=== PATIENT | male | born 1960 | race African-American/Black ===

== ENCOUNTER 2017-03-03 01:36 | Emergency (ER) | payer MEDICAID ==
[~2017-03-03] VITALS: Ht 177.8 cm; Wt 122.5 kg
[2017-03-03 02:00] VITALS: BP 190/106
[2017-03-03] MEDS: cloNIDine HCL 0.1 MG TAB PO ONE (02:05)
[2017-03-03] MEDS: cloNIDine HCL 0.1 MG TAB ONE (02:25)
== END 2017-03-03 02:30 | disposition left against medical advice (07) ==
LOC: ER 01:40
DX: S01.91XA Laceration without foreign body of unspecified part of head, initial encounter (principal); V49.9XXA Car occupant (driver) (passenger) injured in unspecified traffic accident, initial encounter; Y93.89 Activity, other specified; Y92.488 Other paved roadways as the place of occurrence of the external cause; Y99.8 Other external cause status; Z53.21 Procedure and treatment not carried out due to patient leaving prior to being seen by health care provider

== ENCOUNTER 2017-03-03 22:21 | Emergency (ER) | payer MEDICAID ==
[~2017-03-03] VITALS: Ht 177.8 cm; Wt 112.9 kg
[2017-03-03 23:02] VITALS: BP 159/99
[2017-03-04] MEDS ORDERED: BACLOFEN 10 MG TAB PO ONE (03:15)
[2017-03-04] MEDS ORDERED: IBUPROFEN 600 MG TAB PO ONE (03:15)
== END 2017-03-04 03:54 | disposition home or self-care (01) ==
LOC: ER 22:35
DX: S16.1XXA Strain of muscle, fascia and tendon at neck level, initial encounter (principal); S05.11XA Contusion of eyeball and orbital tissues, right eye, initial encounter; S20.212A Contusion of left front wall of thorax, initial encounter; F17.210 Nicotine dependence, cigarettes, uncomplicated; V49.9XXA Car occupant (driver) (passenger) injured in unspecified traffic accident, initial encounter; Y93.89 Activity, other specified; Y92.488 Other paved roadways as the place of occurrence of the external cause; Y99.8 Other external cause status
CPT/HCPCS: 70450; 70486; 71250; 72125

== ENCOUNTER 2017-08-07 19:12 | Emergency (ER) | payer MEDICAID ==
[~2017-08-07] VITALS: Ht 177.8 cm; Wt 113.1 kg
[2017-08-07 19:21] VITALS: BP 139/74
[2017-08-07] MEDS ORDERED: ALBUTEROL SULF 2.5 MG/0.5ML(0.5%) NEB SOLN NEB ONE (22:30)
== END 2017-08-07 22:24 | disposition home or self-care (01) ==
LOC: ER 19:12
DX: F15.10 Other stimulant abuse, uncomplicated (principal); F17.210 Nicotine dependence, cigarettes, uncomplicated; M79.641 Pain in right hand
CPT/HCPCS: 73130

== ENCOUNTER 2017-12-24 20:02 | Emergency (ER) | payer MEDICAID ==
[~2017-12-24] VITALS: Ht 175.3 cm; Wt 117.9 kg
[2017-12-24] MEDS ORDERED: cloNIDine HCL 0.1 MG TAB PO ONE (20:30)
[2017-12-24] MEDS ORDERED: NIFEdipine 10 MG CAP PO ONE (21:45)
[2017-12-24 22:18] VITALS: BP 125/84
== END 2017-12-24 22:20 | disposition home or self-care (01) ==
LOC: EDBD 20:02 → ER 20:06
DX: I16.0 Hypertensive urgency (principal); F15.10 Other stimulant abuse, uncomplicated; I10 Essential (primary) hypertension; F17.210 Nicotine dependence, cigarettes, uncomplicated
CPT/HCPCS: 70450; 71045; 93005; 94761

== ENCOUNTER 2019-01-11 04:39 | Emergency (ER) | payer MEDICAID, OTHER ==
[~2019-01-11] VITALS: Ht 177.8 cm; Wt 117.9 kg
[2019-01-11] MEDS ORDERED: cloNIDine HCL 0.1 MG TAB PO ONE (05:45)
[2019-01-11 07:34] LABS: Basophils # (auto) 0 uL; Basophils % (auto) 0.2 % (0.0-2.0); Eosinophils # (auto) 0.4 uL; Eosinophils % (auto) 4.2 % (0.0-7.0); Hematocrit 39.2 % (41.0-53.0); Hemoglobin 12.9 g/dL (13.5-17.5); Lymphocytes # (auto) 1.2 uL; Mean Corpuscular Hemoglobin 30.3 pg (28.0-32.0); Mean Corpuscular Hgb Conc. 32.9 g/dL (32.0-36.0); Mean Corpuscular Volume 92.3 fL (80.0-100.0); Monocytes # (auto) 0.7 uL; Monocytes % (auto) 6.8 % (0.0-12.0); Neutrophils # (auto) 7.8 uL; Neutrophils % (auto) 76.8 % (37.0-80.0); Platelet Count (auto) 256 10^3/uL (140-450); Red Blood Cells 4.25 10^6/uL (4.5-5.90); White Blood Cell 10.1 10^3/uL (4.4-10.8)
[2019-01-11 07:38] LABS: Albumin 3.4 g/dL (3.4-5.0); Anion Gap 5 (5-15); Blood Urea Nitrogen 17 mg/dL (7-18); Calcium 8.6 mg/dL (8.5-10.1); Carbon Dioxide 30 mmol/L (21-32); Chloride 101 mmol/L (98-107); Glucose 137 mg/dL (74-106); Potassium 3.5 mmol/L (3.5-5.1); Sodium 136 mmol/L (136-145)
[2019-01-11 07:40] LABS: BUN/Creatinine Ratio 13.5; GFR African American 76 mL/min; GFR Non-African American 63 mL/min
[2019-01-11 08:00] LABS: Alanine Aminotransferase 46 U/L (16-61); Alkaline Phosphatase 106 U/L (45-117); Aspartate Aminotransferase 33 U/L (15-37); Bilirubin, Total 0.3 mg/dL (0.2-1.0); Total Protein 6.9 g/dL (6.4-8.2)
[2019-01-11 08:03] VITALS: BP 151/92
[2019-01-11] MEDS ORDERED: DexAMETHasone SOD PHOS 4 MG/1ML SDV INJ IM ONE (09:15)
== END 2019-01-11 10:14 | disposition home or self-care (01) ==
LOC: ER 04:41
DX: M19.032 Primary osteoarthritis, left wrist (principal); M71.561 Other bursitis, not elsewhere classified, right knee; F17.210 Nicotine dependence, cigarettes, uncomplicated; F12.10 Cannabis abuse, uncomplicated; I10 Essential (primary) hypertension
CPT/HCPCS: 36415; 73110; 73130; 73562; 80053; 84484; 85025; 96372; 99284; J1100

== ENCOUNTER 2019-04-07 13:32 | Emergency (ER) | payer MEDICAID, OTHER ==
[~2019-04-07] VITALS: Ht 175.3 cm; Wt 117.9 kg
[2019-04-07] MEDS ORDERED: hydrALAZINE HCL 20 MG/ML VL IV ONE (13:45)
[2019-04-07 14:20] LABS: Basophils # (auto) 0 uL; Basophils % (auto) 0.3 % (0.0-2.0); Eosinophils # (auto) 0 uL; Eosinophils % (auto) 0.3 % (0.0-7.0); Hematocrit 41.7 % (41.0-53.0); Hemoglobin 13.4 g/dL (13.5-17.5); Lymphocytes # (auto) 1.2 uL; Lymphocytes % (auto) 9.5 % (10.0-50.0); Mean Corpuscular Hemoglobin 29.8 pg (28.0-32.0); Mean Corpuscular Hgb Conc. 32.2 g/dL (32.0-36.0); Mean Corpuscular Volume 92.4 fL (80.0-100.0); Monocytes # (auto) 0.7 uL; Monocytes % (auto) 6.1 % (0.0-12.0); Neutrophils # (auto) 10.1 uL; Neutrophils % (auto) 83.8 % (37.0-80.0); Nucleated Red Blood Cells % 0.1 %; Platelet Count (auto) 285 10^3/uL (140-450); Red Blood Cells 4.51 10^6/uL (4.5-5.90); Red Cell Distribution Width 14.3 % (11.8-14.3); White Blood Cell 12.1 10^3/uL (4.4-10.8)
[2019-04-07 14:30] VITALS: BP 198/99
[2019-04-07 14:42] LABS: Albumin 3.8 g/dL (3.4-5.0); Calcium 8.9 mg/dL (8.5-10.1); Potassium 3.6 mmol/L (3.5-5.1)
[2019-04-07 14:49] LABS: BUN/Creatinine Ratio 10.7; Bilirubin, Total 0.5 mg/dL (0.2-1.0)
[2019-04-07] MEDS ORDERED: cloNIDine HCL 0.1 MG TAB PO ONE (15:15)
== END 2019-04-07 15:39 | disposition home or self-care (01) ==
LOC: EDBD 13:32 → ER 13:33
DX: I16.0 Hypertensive urgency (principal); F17.210 Nicotine dependence, cigarettes, uncomplicated; F12.10 Cannabis abuse, uncomplicated; F15.10 Other stimulant abuse, uncomplicated; M10.9 Gout, unspecified; I10 Essential (primary) hypertension
CPT/HCPCS: 36415; 80053; 84484; 85025; 96374; 99284; J0360

== ENCOUNTER 2019-04-07 23:58 | Emergency (ER) | payer SELFPAY ==
[~2019-04-07] VITALS: Ht 177.8 cm; Wt 117.1 kg
[2019-04-08] MEDS ORDERED: cloNIDine HCL 0.1 MG TAB PO ONE (00:45)
[2019-04-08 02:00] VITALS: BP 180/92
[2019-04-08 02:26] LABS: Albumin 3.3 g/dL (3.4-5.0); Basophils # (auto) 0 uL; Basophils % (auto) 0.4 % (0.0-2.0); Calcium 8.8 mg/dL (8.5-10.1); Eosinophils # (auto) 0.1 uL; Eosinophils % (auto) 0.8 % (0.0-7.0); Hematocrit 40.1 % (41.0-53.0); Hemoglobin 13.2 g/dL (13.5-17.5); Lymphocytes # (auto) 1.1 uL; Lymphocytes % (auto) 11.7 % (10.0-50.0); Mean Corpuscular Hgb Conc. 32.9 g/dL (32.0-36.0); Mean Corpuscular Volume 91.2 fL (80.0-100.0); Monocytes # (auto) 0.6 uL; Monocytes % (auto) 6.4 % (0.0-12.0); Neutrophils # (auto) 7.4 uL; Neutrophils % (auto) 80.7 % (37.0-80.0); Nucleated Red Blood Cells % 0.2 %; Platelet Count (auto) 277 10^3/uL (140-450); Potassium 3.4 mmol/L (3.5-5.1); Red Cell Distribution Width 14.1 % (11.8-14.3); White Blood Cell 9.1 10^3/uL (4.4-10.8)
[2019-04-08 02:29] LABS: Bilirubin, Total 0.7 mg/dL (0.2-1.0); Total Protein 7.3 g/dL (6.4-8.2)
== END 2019-04-08 03:40 | disposition home or self-care (01) ==
LOC: ER 04-08
DX: I10 Essential (primary) hypertension (principal); M10.9 Gout, unspecified; F17.210 Nicotine dependence, cigarettes, uncomplicated; F12.10 Cannabis abuse, uncomplicated; F15.10 Other stimulant abuse, uncomplicated
CPT/HCPCS: 36415; 71045; 80053; 85025; 93005

== ENCOUNTER 2019-04-29 13:40 | Emergency (ER) | payer MEDICAID ==
[~2019-04-29] VITALS: Ht 172.7 cm; Wt 108.9 kg
[2019-04-29] MEDS ORDERED: amLODIPine BESYLATE 5 MG TAB PO ONE (15:00)
[2019-04-29 18:54] LABS: Basophils # (auto) 0 uL; Basophils % (auto) 0.2 % (0.0-2.0); Eosinophils # (auto) 0.1 uL; Hematocrit 41.9 % (41.0-53.0); Hemoglobin 13.6 g/dL (13.5-17.5); Lymphocytes # (auto) 1.3 uL; Lymphocytes % (auto) 11.2 % (10.0-50.0); Mean Corpuscular Hemoglobin 30.3 pg (28.0-32.0); Mean Corpuscular Hgb Conc. 32.4 g/dL (32.0-36.0); Mean Corpuscular Volume 93.6 fL (80.0-100.0); Monocytes # (auto) 0.8 uL; Monocytes % (auto) 6.6 % (0.0-12.0); Neutrophils # (auto) 9.6 uL; Platelet Count (auto) 264 10^3/uL (140-450); Red Blood Cells 4.47 10^6/uL (4.5-5.90); White Blood Cell 11.9 10^3/uL (4.4-10.8)
[2019-04-29 19:12] LABS: Albumin 3.7 g/dL (3.4-5.0); Anion Gap 7 (5-15); Blood Urea Nitrogen 13 mg/dL (7-18); Calcium 8.8 mg/dL (8.5-10.1); Carbon Dioxide 26 mmol/L (21-32); Chloride 107 mmol/L (98-107); Glucose 92 mg/dL (74-106); Potassium 3.4 mmol/L (3.5-5.1); Sodium 140 mmol/L (136-145)
[2019-04-29 19:15] LABS: Alanine Aminotransferase 31 U/L (16-61); Aspartate Aminotransferase 25 U/L (15-37); BUN/Creatinine Ratio 12.1; GFR African American 92 mL/min; GFR Non-African American 76 mL/min
[2019-04-29 19:17] LABS: Alkaline Phosphatase 127 U/L (45-117); Bilirubin, Total 0.5 mg/dL (0.2-1.0); Total Protein 7.9 g/dL (6.4-8.2)
[2019-04-29 23:00] VITALS: BP 191/111
== END 2019-04-29 23:44 | disposition home or self-care (01) ==
LOC: EDBD 13:40 → ER 13:40
DX: I10 Essential (primary) hypertension (principal); F15.10 Other stimulant abuse, uncomplicated; F17.210 Nicotine dependence, cigarettes, uncomplicated; Z91.19 Patient's noncompliance with other medical treatment and regimen
CPT/HCPCS: 36415; 80053; 84484; 85025; 93005

== ENCOUNTER → 2019-04-30 00:34 | Emergency (ER) | payer MEDICAID | END | disposition left against medical advice (07) | LOC: ER 00:34 | DX: I10 Essential (primary) hypertension (principal); Z53.21 Procedure and treatment not carried out due to patient leaving prior to being seen by health care provider ==

== ENCOUNTER 2019-07-03 19:46 | Emergency (ER) | payer MEDICAID | END 2019-07-03 20:09 | disposition left against medical advice (07) | LOC: EDBD 19:46 → ER 19:49 | DX: J00 Acute nasopharyngitis [common cold] (principal); Z53.21 Procedure and treatment not carried out due to patient leaving prior to being seen by health care provider ==

== ENCOUNTER 2019-07-06 17:02 | Emergency (ER) | payer MEDICAID ==
[~2019-07-06] VITALS: Ht 177.8 cm; Wt 120.2 kg
[2019-07-06 18:18] LABS: Basophils # (auto) 0 10 ^3/uL (0-0.2); Basophils % (auto) 0.5 % (0.0-2.0); Eosinophils # (auto) 0.1 10 ^3/uL (0-0.8); Eosinophils % (auto) 1.5 % (0.0-7.0); Hematocrit 33.7 % (41.0-53.0); Hemoglobin 10.9 g/dL (13.5-17.5); Lymphocytes % (auto) 13.8 % (10.0-50.0); Mean Corpuscular Hemoglobin 29.8 pg (28.0-32.0); Mean Corpuscular Hgb Conc. 32.5 g/dL (32.0-36.0); Mean Corpuscular Volume 91.6 fL (80.0-100.0); Monocytes # (auto) 0.6 10 ^3/uL (0-1.3); Monocytes % (auto) 9.1 % (0.0-12.0); Neutrophils # (auto) 5.4 10 ^3/uL (1.6-8.6); Neutrophils % (auto) 75.1 % (37.0-80.0); Platelet Count (auto) 383 10^3/uL (140-450); Red Blood Cells 3.68 10^6/uL (4.5-5.90); Red Cell Distribution Width 15.1 % (11.8-14.3); White Blood Cell 7.1 10^3/uL (4.4-10.8)
[2019-07-06 18:24] LABS: Urine Bacteria NONE SEEN /hpf (None Seen); Urine Blood Negative /uL (Negative); Urine Specific Gravity 1.012 (1.001-1.035); Urine WBC 4 /hpf (0 - 3)
[2019-07-06 18:35] LABS: Albumin 3.6 g/dL (3.4-5.0); Calcium 8.8 mg/dL (8.5-10.1); Potassium 3.6 mmol/L (3.5-5.1); Salicylate < 1.7 mg/dL (2.8-20.0)
[2019-07-06 18:37] LABS: Acetaminophen < 2.0 ug/mL (10-30)
[2019-07-06 18:38] LABS: Amphetamine Screen, Urine POSITIVE (NEGATIVE); Barbiturate Scree,Urine NEGATIVE (NEGATIVE); Benzodiazephine Screen, Urine NEGATIVE (NEGATIVE); Cannabinoid Screen, Urine NEGATIVE (NEGATIVE); Cocaine Screen, Urine NEGATIVE (NEGATIVE); Opiate Scree,Urine NEGATIVE (NEGATIVE); Phencyclidine Screen, Urine NEGATIVE (NEGATIVE)
[2019-07-06 18:38] LABS: BUN/Creatinine Ratio 13.2; Bilirubin, Total 0.3 mg/dL (0.2-1.0)
[2019-07-06] MEDS ORDERED: cloNIDine HCL 0.1 MG TAB PO ONE (19:45)
[2019-07-07 06:26] VITALS: BP 174/90
== END 2019-07-07 06:22 | disposition home or self-care (01) ==
LOC: ER 17:02
DX: F20.9 Schizophrenia, unspecified (principal); F15.10 Other stimulant abuse, uncomplicated; M25.579 Pain in unspecified ankle and joints of unspecified foot
CPT/HCPCS: 36415; 80053; 80307; 80329; 81001; 85025

== ENCOUNTER → 2019-09-13 | Emergency (ER) | payer MEDICAID ==
[~2019-09-13] VITALS: Ht 185.4 cm; Wt 122.5 kg
[~2019-09-13] MED LIST: cloNIDine HCL 0.1 MG TAB PO ONE
[2019-09-13 12:00] VITALS: BP 173/102
[2019-09-13 14:02] LABS: Urine Bacteria NONE SEEN /hpf (None Seen); Urine Blood Negative /uL (Negative); Urine Specific Gravity 1.012 (1.001-1.035); Urine WBC 1 /hpf (0 - 3)
[2019-09-13 14:21] LABS: Alcohol, Urine < 3.0 mg/dL (0-10); Amphetamine Screen, Urine POSITIVE (NEGATIVE); Barbiturate Scree,Urine NEGATIVE (NEGATIVE); Benzodiazephine Screen, Urine NEGATIVE (NEGATIVE); Cannabinoid Screen, Urine POSITIVE (NEGATIVE); Cocaine Screen, Urine NEGATIVE (NEGATIVE); Opiate Scree,Urine NEGATIVE (NEGATIVE); Phencyclidine Screen, Urine NEGATIVE (NEGATIVE)
== END | disposition home or self-care (01) ==
LOC: EDUNIT# 11:28 → ER 11:43 → EDBD 11:43
DX: M79.672 Pain in left foot (principal); M79.671 Pain in right foot; F15.20 Other stimulant dependence, uncomplicated; I10 Essential (primary) hypertension; F17.210 Nicotine dependence, cigarettes, uncomplicated; F12.10 Cannabis abuse, uncomplicated; Z59.0 Homelessness; Z86.73 Personal history of transient ischemic attack (TIA), and cerebral infarction without residual deficits
CPT/HCPCS: 71045; 80307; 81001; 93005

== ENCOUNTER → 2019-09-19 | Emergency (ER) | payer MEDICAID ==
[~2019-09-19] VITALS: Ht 177.8 cm; Wt 99.8 kg
[2019-09-19 23:00] VITALS: BP 150/78
[2019-09-19 23:54] LABS: Basophils # (auto) 0.1 10 ^3/uL (0-0.2); Basophils % (auto) 0.6 % (0.0-2.0); Eosinophils # (auto) 0.1 10 ^3/uL (0-0.8); Eosinophils % (auto) 1.6 % (0.0-7.0); Hemoglobin 12.6 g/dL (13.5-17.5); Lymphocytes # (auto) 1.4 10 ^3/uL (0.4-5.4); Lymphocytes % (auto) 15.7 % (10.0-50.0); Mean Corpuscular Hemoglobin 28.8 pg (28.0-32.0); Mean Corpuscular Hgb Conc. 32.4 g/dL (32.0-36.0); Mean Corpuscular Volume 88.8 fL (80.0-100.0); Monocytes # (auto) 0.7 10 ^3/uL (0-1.3); Monocytes % (auto) 8.1 % (0.0-12.0); Neutrophils # (auto) 6.6 10 ^3/uL (1.6-8.6); Nucleated Red Blood Cells % 0.1 %; Platelet Count (auto) 315 10^3/uL (140-450); Red Blood Cells 4.39 10^6/uL (4.5-5.90); Red Cell Distribution Width 16.1 % (11.8-14.3); White Blood Cell 8.8 10^3/uL (4.4-10.8)
[2019-09-20 00:11] LABS: Alanine Aminotransferase 53 U/L (16-61); Albumin 3.5 g/dL (3.4-5.0); Anion Gap 5 (5-15); Aspartate Aminotransferase 53 U/L (15-37); BUN/Creatinine Ratio 19.5; Blood Urea Nitrogen 23 mg/dL (7-18); Calcium 8.3 mg/dL (8.5-10.1); Carbon Dioxide 29 mmol/L (21-32); Chloride 104 mmol/L (98-107); GFR African American 82 mL/min; GFR Non-African American 68 mL/min; Glucose 106 mg/dL (74-106); Potassium 3.4 mmol/L (3.5-5.1); Sodium 138 mmol/L (136-145)
[2019-09-20 00:16] LABS: Alkaline Phosphatase 116 U/L (45-117); Bilirubin, Total 0.5 mg/dL (0.2-1.0); Total Protein 7.6 g/dL (6.4-8.2)
== END | disposition home or self-care (01) ==
LOC: ER 22:30
DX: T16.2XXA Foreign body in left ear, initial encounter (principal); R51 Headache; T50.905A Adverse effect of unspecified drugs, medicaments and biological substances, initial encounter; I10 Essential (primary) hypertension; F17.210 Nicotine dependence, cigarettes, uncomplicated; Z86.73 Personal history of transient ischemic attack (TIA), and cerebral infarction without residual deficits; Z59.0 Homelessness; Z91.14 Patient's other noncompliance with medication regimen; X58.XXXA Exposure to other specified factors, initial encounter; Y93.89 Activity, other specified; Y92.89 Other specified places as the place of occurrence of the external cause; Y99.8 Other external cause status
CPT/HCPCS: 36415; 71045; 80053; 83880; 84484; 85025; 93005

== ENCOUNTER 2019-10-04 02:37 | Emergency (ER) | payer MEDICAID ==
[~2019-10-04] VITALS: Ht 177.8 cm; Wt 99.8 kg
[2019-10-04 02:37] VITALS: BP 186/100
== END 2019-10-04 09:45 | disposition left against medical advice (07) ==
LOC: ER 02:37
DX: I10 Essential (primary) hypertension (principal); Z53.21 Procedure and treatment not carried out due to patient leaving prior to being seen by health care provider
CPT/HCPCS: 71046